=== PATIENT | male | born 1955 | race Caucasian/White ===

== ENCOUNTER 2018-12-10 20:52 | Emergency (ER) | payer BC ==
[2018-12-10] MEDS ORDERED: LISI20TA29 PO (21:21)
--- NOTE | 2018-12-10 21:47 | ER Report ---
History and Physical Time Seen By MD: 21:47 Hx. of Stated Complaint: PATIENT STATES THAT HE IS FROM [facility] ON MONDAY AND SINCE THEN HAS BEEN FEELING SOP AND HEAD ACHE; PATIENTS O2 WAS 85% ON ROOM AIR IN WAITING ROOM HPI/ROS CHIEF COMPLAINT: short of breath, hypoxia HISTORY OF PRESENT ILLNESS: This is a 63 year old male. He is visiting here from [place]. Has been skiing. Very short of breath, worsens with exertion. Has had some headache as well. 85% on room air. No cough or fevers. No chest pain or palpitations. No nausea. He thinks that this is due to altitude, but wanted to make sure nothing more serious. Has never had problems at elevation in the past. Allergies: Coded Allergies: No Known Drug Allergies (Unverified , 12/10/18) Home Meds Reported Medications Lisinopril (LISINOPRIL) 20 Mg Tablet, 20 MG PO QDAY, TAB 12/10/18 Reviewed Nurses Notes: Yes Constitutional Vital Sign - Last 24 Hours 12/10/18 21:20 O2 Flow Rate 2.0 Physical Exam General Appearance: The patient is alert. No acute distress. Eyes: Pupils are equal, round. No pallor, injection or icterus. ENT: Mucous membranes are moist. Respiratory: Lungs are clear to auscultation. Cardiovascular: Regular rate and rhythm. No murmurs, gallops or rubs. Normal capillary refill. Gastrointestinal: Abdomen is soft and non tender. Nondistended. Normal active bowel sounds. Neurological: Alert and oriented x3. Cranial nerves II through XII show no acute deficits on my exam. No focal neurologic deficits in the extremities. Skin: Warm and dry. DIFFERENTIAL DIAGNOSIS: After history and physical exam, differential diagnosis was considered for shortness of breath including but not limited to pulmonary infectious process, coronary/cardiac syndrome pulmonary embolus, altitude related illness illness and congestive heart failure. Medical Decision Making Data Points Result Diagram: 12/10/18220212/10/182202 Laboratory Hematology Test 12/10/18 22:03 12/11/18 01:11 Red Blood Count 4.42 M/uL (4.00-5.60) Mean Corpuscular Volume 91.2 fL (80.0-96.0) Mean Corpuscular Hemoglobin 30.9 pg (26.0-33.0) Mean Corpuscular Hemoglobin Concent 33.9 g/dL (32.0-36.0) Red Cell Distribution Width 13.3 % (11.5-14.5) Mean Platelet Volume 8.3 fL (7.2-11.1) Neutrophils (%) (Auto) 59.2 % (39.4-72.5) Lymphocytes (%) (Auto) 23.1 % (17.6-49.6) Monocytes (%) (Auto) 15.3 % (4.1-12.4) Eosinophils (%) (Auto) 1.7 % (0.4-6.7) Basophils (%) (Auto) 0.7 % (0.3-1.4) Nucleated RBC Relative Count (auto) 0.0 /100WBC Neutrophils # (Auto) 5.1 K/uL (2.0-7.4) Lymphocytes # (Auto) 2.0 K/uL (1.3-3.6) Monocytes # (Auto) 1.3 K/uL (0.3-1.0) Eosinophils # (Auto) 0.1 K/uL (0.0-0.5) Basophils # (Auto) 0.1 K/uL (0.0-0.1) Nucleated RBC Absolute Count (auto) 0.00 K/uL D-Dimer Quantitative (PE/DVT) 0.86 ug/ml (0-0.50) Sodium Level 141 mmol/L (137-145) Potassium Level 3.7 mmol/L (3.5-5.0) Chloride Level 108 mmol/L (98-107) Carbon Dioxide Level 26 mmol/L (22-30) Blood Urea Nitrogen 25 mg/dl (9-21) Creatinine 1.00 mg/dl (0.66-1.25) Glomerular Filtration Rate Calc > 60.0 Random Glucose 112 mg/dl (75-110) Calcium Level 9.2 mg/dl (8.4-10.2) Total Bilirubin 0.8 mg/dl (0.2-1.3) Aspartate Amino Transf (AST/SGOT) 25 U/L (0-35) Alanine Aminotransferase (ALT/SGPT) 37 U/L (0-56) Alkaline Phosphatase 89 U/L (0-126) Total Protein 6.4 g/dl (6.3-8.2) Albumin 3.8 g/dl (3.5-5.0) Troponin I 0.042 ng/ml Chemistry Test 12/10/18 22:03 12/11/18 01:11 White Blood Count 8.6 k/uL (4.5-11.0) Red Blood Count 4.42 M/uL (4.00-5.60) Hemoglobin 13.7 g/dL (14.0-18.0) Hematocrit 40.3 % (42.0-52.0) Mean Corpuscular Volume 91.2 fL (80.0-96.0) Mean Corpuscular Hemoglobin 30.9 pg (26.0-33.0) Mean Corpuscular Hemoglobin Concent 33.9 g/dL (32.0-36.0) Red Cell Distribution Width 13.3 % (11.5-14.5) Platelet Count 206 K/uL (150-450) Mean Platelet Volume 8.3 fL (7.2-11.1) Neutrophils (%) (Auto) 59.2 % (39.4-72.5) Lymphocytes (%) (Auto) 23.1 % (17.6-49.6) Monocytes (%) (Auto) 15.3 % (4.1-12.4) Eosinophils (%) (Auto) 1.7 % (0.4-6.7) Basophils (%) (Auto) 0.7 % (0.3-1.4) Nucleated RBC Relative Count (auto) 0.0 /100WBC Neutrophils # (Auto) 5.1 K/uL (2.0-7.4) Lymphocytes # (Auto) 2.0 K/uL (1.3-3.6) Monocytes # (Auto) 1.3 K/uL (0.3-1.0) Eosinophils # (Auto) 0.1 K/uL (0.0-0.5) Basophils # (Auto) 0.1 K/uL (0.0-0.1) Nucleated RBC Absolute Count (auto) 0.00 K/uL D-Dimer Quantitative (PE/DVT) 0.86 ug/ml (0-0.50) Glomerular Filtration Rate Calc > 60.0 Calcium Level 9.2 mg/dl (8.4-10.2) Total Bilirubin 0.8 mg/dl (0.2-1.3) Aspartate Amino Transf (AST/SGOT) 25 U/L (0-35) Alanine Aminotransferase (ALT/SGPT) 37 U/L (0-56) Alkaline Phosphatase 89 U/L (0-126) Total Protein 6.4 g/dl (6.3-8.2) Albumin 3.8 g/dl (3.5-5.0) Troponin I 0.042 ng/ml Coagulation Test 12/10/18 22:03 D-Dimer Quantitative (PE/DVT) 0.86 ug/ml EKG/Imaging EKG Interpretation 12 lead EKG: Rhythm: Normal sinus rhythm, rate 91 [place]: normal QRS: Nonspecific T-wave changes ST segments: No ST elevation or depression Imaging CHEST PA LAT INDICATION: Short of breath COMPARISON: None available FINDINGS: The cardiac silhouette is normal in size. No pneumothorax. Minimal central bilateral mid to lower lung patchy opacification. Chronic left clavicle fracture deformity. No pleural fluid. IMPRESSION: Minimal bilateral nonspecific mid to lower lung central opacification which may reflect bronchitis, viral pneumonia or minimal pulmonary edema. Report Dictated By: Geoff Perry MD at 12/10/2018 11:[address] PE DATE: 12/11/2018 12:40 AM INDICATION: Hypoxia, shortness of breath. COMPARISON: Same-day radiographs. TECHNIQUE: Axial CT angiogram was obtained through the chest with intravenous contrast. Sagittal and coronal MPR and MIP coronal reformations were also generated. 75 mL isovue 370. One of the following dose optimization techniques was utilized in the performance of this exam: Automated exposure control; adjustment of the mA and/or kV according to the patient's size; or use of an iterative reconstruction technique. Specific details can be referenced in the facility's radiology CT exam operational policy. FINDINGS: Thyroid / Thoracic Inlet: No visualized thyroid nodule or supraclavicular lymphadenopathy. Pulmonary Arteries: Normal. Heart and Aorta: Normal-size heart with no pericardial effusion. Nonaneurysmal thoracic aorta. Mediastinum and Irish: No lymphadenopathy. Lungs and Pleura: No pleural effusion or pneumothorax. Multifocal bilateral predominantly perihilar groundglass opacification is likely infectious/inflammatory. Breast and Axilla: No axillary lymphadenopathy. Upper Abdomen: No visualized acute abnormality. Multiple small hepatic cysts. Bones and Soft Tissues: No suspicious osseous or soft tissue abnormality. IMPRESSION: 1. No pulmonary embolism. 2. Multifocal bilateral predominantly perihilar groundglass opacification is likely infectious/inflammatory. Consider 3-6 month follow-up to exclude other process. Report Dictated By: Shantanu Grider MD at 12/11/2018 12:40 AM ED Course/Re-evaluation Clinical Indication for ER IV: IV Access ED Course After my initial evaluation, we elected to go ahead and do workup looking for acute coronary syndrome, PE, and other problems. Initial troponin was in the indeterminate range. Chest x-ray showed a little bit of haziness in the lower lobes bilaterally. D-dimer was slightly elevated. Reviewed this with the patient and went ahead and did a CT angiogram of the chest. This did reveal a little bit of ground glass opacities which could represent inflammatory versus infectious changes, viral or bacterial. Reviewed this with the patient. I think his shortness of breath as a combination of these changes were seen in the lungs as well as the altitude combined. Repeat troponin was lower than the initial. Based on these findings, this appears to be combination of inflammatory infectious etiology in the lung and we will go ahead and start a azithromycin. Oxygen levels on discharge were about 88% on room air. He is flying home today. Decision to Disposition Date: Dec 11, 2018 Decision to Disposition Time: 02:00 Depart Departure Latest Vital Signs Vital Signs Date Time Temp Pulse Resp B/P (MAP) Pulse Ox O2 Delivery O2 Flow Rate FiO2 12/10/18 21:20 2.0 Impression: Primary Impression: Pneumonia Additional Impression: Altitude sickness Condition: Improved Disposition: HOME OR SELF-CARE Patient Instructions: Community Acquired Pneumonia (ED), Mountain Sickness (ED) Additional Instructions: Your evaluation shows no signs of blood clots or heart attack. There were some changes in the lungs that could represent a pneumonia (viral versus bacteria) or inflammatory changes. We are going to start treatment for an atypical pneumonia with Azithromycin 250mg tablets, 2 tablets once a day for 3 days. Follow-up with your doctor on return to [place] for re-evaluation. Take your time and rest as needed while exerting yourself. Problem Qualifiers Primary Impression: Pneumonia Pneumonia type: due to unspecified organism Laterality: bilateral Lung location: lower lobe of lung Qualified Codes: J18.1 - Lobar pneumonia, unspecified organism Additional Impression: Altitude sickness Encounter type: initial encounter Qualified Codes: T70.29XA - Other effects of high altitude, initial encounter JOSE MIGUEL PAL MD Dec 10, 2018 21:47
[2018-12-10 22:12] LABS: PLATELET COUNT, AUTOMATED 206 K/uL (150-450)
--- NOTE | 2018-12-10 22:47 | EKG ---
FACILITY: [facility] - [place] PATIENT NAME: REFUGIO ADEN : [id number] MR: [id number] V: [id number] EXAM DATE: ORDERING PHYSICIAN: JOSE MIGUEL PAL TECHNOLOGIST: RAFAEL Haley Reason : SOB Blood Pressure : / mmHG Vent. Rate : 091 BPM Atrial Rate : 091 BPM P-R Int : 158 ms QRS Dur : 086 ms QT Int : 332 ms P-R-T Axes : 069 080 017 degrees QTc Int : 408 ms Sinus rhythm Nonspecific T wave abnormality Abnormal ECG No previous ECGs available Confirmed by ZAHRAA GUALLPA ([id number] on 12/11/2018 6:13:13 AM Referred By: Confirmed By:ZAHRAA GUALLPA
--- NOTE | 2018-12-10 23:39 | RADIOLOGY IMAGING REPORT ---
FACILITY: [facility] - [place] PATIENT NAME: Agustín Hoyt : 1955 MR: [id number] V: [id number] EXAM DATE: ORDERING PHYSICIAN: JOSE MIGUEL PAL TECHNOLOGIST: Location: [facility] Patient: Agustín Hoyt : 1955 Visit/Account:[id number] Date of Sevice: 12/10/2018 CHEST PA LAT INDICATION: Short of breath COMPARISON: None available FINDINGS: The cardiac silhouette is normal in size. No pneumothorax. Minimal central bilateral mid to lower lung patchy opacification. Chronic left clavicle fracture deformity. No pleural fluid. IMPRESSION: Minimal bilateral nonspecific mid to lower lung central opacification which may reflect bronchitis, v iral pneumonia or minimal pulmonary edema. Report Dictated By: Geoff Perry MD at 12/10/2018 11:31 PM Report E-Signed By: Geoff Perry MD at 12/10/2018 11:33 PM WSN:[id number]
[2018-12-11] MEDS ORDERED: NS(*) 0.9% 50 ML BAG 50 ML ONE (00:05)
[2018-12-11] MEDS ORDERED: IOPAMIDOL 76% 100 ML INFUS BTL 100 ML ONE (00:05)
--- NOTE | 2018-12-11 00:51 | RADIOLOGY IMAGING REPORT ---
FACILITY: [facility] - [place] PATIENT NAME: Agustín Hoyt : 1955 MR: [id number] V: [id number] EXAM DATE: ORDERING PHYSICIAN: JOSE MIGUEL PAL TECHNOLOGIST: Location: [facility] - [place] Patient: Agustín Hoyt : 1955 Visit/Account:[id number] Date of Sevice: 12/10/2018 CT PE DATE: 12/11/2018 12:40 AM INDICATION: Hypoxia, shortness of breath. COMPARISON: Same-day radiographs. TECHNIQUE: Axial CT angiogram was obtained through the chest with intravenous contrast. Sagittal an d coronal MPR and MIP coronal reformations were also generated. 75 mL isovue 370. One of the follow ing dose optimization techniques was utilized in the performance of this exam: Automated exposure con trol; adjustment of the mA and/or kV according to the patient's size; or use of an iterative reconst ruction technique. Specific details can be referenced in the facility's radiology CT exam operationa l policy. FINDINGS: Thyroid / Thoracic Inlet: No visualized thyroid nodule or supraclavicular lymphadenopathy. Pulmonary Arteries: Normal. Heart and Aorta: Normal-size heart with no pericardial effusion. Nonaneurysmal thoracic aorta. Mediastinum and Irish: No lymphadenopathy. Lungs and Pleura: No pleural effusion or pneumothorax. Multifocal bilateral predominantly perihilar groundglass opacification is likely infectious/inflammatory. Breast and Axilla: No axillary lymphadenopathy. Upper Abdomen: No visualized acute abnormality. Multiple small hepatic cysts. Bones and Soft Tissues: No suspicious osseous or soft tissue abnormality. IMPRESSION: 1. No pulmonary embolism. 2. Multifocal bilateral predominantly perihilar groundglass opacification is likely infectious/infla mmatory. Consider 3-6 month follow-up to exclude other process. Report Dictated By: Shantanu Grider MD at 12/11/2018 12:40 AM Report E-Signed By: Shantanu Grider MD at 12/11/2018 12:47 AM WSN:[id number]
[2018-12-11] MEDS ORDERED: AZITHROMYCIN 250 MG TAB PO ONE (02:00)
[2018-12-11 02:10] VITALS: BP 168/89
== END 2018-12-11 02:15 | disposition home or self-care (01) ==
LOC: ER 21:47
DX: J18.1 Lobar pneumonia, unspecified organism (principal); T70.29XA Other effects of high altitude, initial encounter; R09.02 Hypoxemia
CPT/HCPCS: 36415; 71046; 71275; 84484; 85025; 85379; 93005; 99284; J7050; Q0144; Q9967; 82040; 82247; 82310; 82374; 82435; 82565; 82947; 84075; 84132; 84155; 84295; 84450; 84460; 84520